=== PATIENT | male | born 1960 | race Caucasian/White ===

== ENCOUNTER 2023-11-16 15:11 | Inpatient (IN) | payer OTHER ==
[~2023-11-16] VITALS: Ht 175.3 cm; Wt 89.8 kg
[2023-11-16 15:14] VITALS: O2SAT 93
[2023-11-16 15:59] LABS: BASOPHILS % 0.5 % (0.0-2.0); HEMATOCRIT. 42.1 % (42.0-52.0); HEMOGLOBIN. 14.6 g/dL (14.0-18.0); LYMPHOCYTES % 26.6 % (20.0-50.0); MEAN CORPUSCULAR HGB CONC 34.6 g/dL (31.0-37.0); MEAN CORPUSCULAR VOLUME 89.8 fL (80.0-94.0); MEAN PLATELET VOLUME 8.7 fl (7.4-10.4); MONOCYTES % 8.2 % (2.0-8.0); NEUTROPHILS % 63.7 % (40.0-76.0); PLATELET 242 x1000/uL (130-400); RED BLOOD CELL COUNT 4.69 mill/uL (4.7-6.1); RED CELL DISTRIBUTION WIDTH 14.3 % (11.6-14.6); WHITE BLOOD COUNT 8.2 x1000/uL (4.5-11.0)
[2023-11-16 16:01] LABS: CHLORIDE 109 mEq/L (98-107); POTASSIUM 3.4 mEq/L (3.5-5.1); SODIUM 140 mEq/L (136-145)
[2023-11-16 16:02] LABS: CALCIUM 8.3 mg/dL (8.7-10.4); CARBON DIOXIDE 23 mEq/L (21-32)
[2023-11-16 16:06] LABS: CREATININE 1.2 mg/dL (0.6-1.3); PARTIAL THROMBOPLASTIN TIME 25.6 sec (23.4-31.0); PROTHROMBIN TIME 10.8 sec (9.6-11.0)
[2023-11-16 16:07] LABS: GLUCOSE 125 mg/dL (70-105); UREA NITROGEN BLOOD 17 mg/dL (9-23)
[2023-11-16 16:09] LABS: TROPONIN I HIGH SENSITIVITY 12 ng/L (3.0-53)
[2023-11-16] MEDS: DILTIAZEM HCL 5MG/ML 5ML VIAL IV ONE (16:17)
[2023-11-16] MEDS: SODIUM CHLORIDE 0.9% 1,000 ML IV ONE (16:19)
[2023-11-16 19:30] LABS: TROPONIN I HIGH SENSITIVITY 41 ng/L (3.0-53)
[2023-11-16] MEDS: DILTIAZEM HCL 120MG CAPSULE ER 24HR PO NR (19:42)
[2023-11-16] MEDS ORDERED: ACETAMINOPHEN 325MG TABLET PO PRN ×2 (23:00)
[2023-11-16] MEDS ORDERED: ONDANSETRON HCL 4MG/2ML INJ IV PRN (23:00)
[2023-11-16] MEDS ORDERED: CLONIDINE 0.1MG TABLET PO PRN (23:00)
[2023-11-16] MEDS ORDERED: GUAIFENESIN 200MG/10ML SUGAR FREE UDC PO PRN (23:00)
[2023-11-16] MEDS ORDERED: MAGNESIUM/ALUMINUM HYDROXIDE/SIMETHICONE 30ML UDC PO PRN (23:00)
[2023-11-16] MEDS ORDERED: DOCUSATE SODIUM 100MG CAPSULE PO PRN (23:00)
[2023-11-17] VITALS: BP 142/66; PULSE 62; RESP 18; TEMP 98.2
[2023-11-17] MEDS ORDERED: HYDR50TA PO (00:40)
[2023-11-17] MEDS ORDERED: VALS160T28 PO (00:40)
[2023-11-17] MEDS ORDERED: METF-907 PO (00:40)
[2023-11-17] MEDS ORDERED: ATOR-2 PO (00:40)
[2023-11-17] MEDS ORDERED: DILT240C96 PO (00:40)
[2023-11-17] MEDS ORDERED: CLOP75TA33 PO (00:40)
[2023-11-17 04:00] VITALS: BP 133/66; PULSE 49; RESP 18; TEMP 98.2
[2023-11-17] MEDS ORDERED: ATROPINE SULFATE 1MG/10ML SYR IV PRN (04:00)
[2023-11-17] MEDS ORDERED: HYDRALAZINE 20MG/ML VIAL IV PRN (04:00)
[2023-11-17] MEDS ORDERED: SODIUM CHLORIDE 0.9% 500 ML IV ONE (05:30)
[2023-11-17 07:29] LABS: BASOPHILS % 0.5 % (0.0-2.0); EOSINOPHILS % 1.2 % (0.0-5.0); HEMOGLOBIN. 15.2 g/dL (14.0-18.0); LYMPHOCYTES % 30.6 % (20.0-50.0); MEAN CORPUSCULAR HEMOGLOBIN 30.4 pg (28.0-32.0); MEAN CORPUSCULAR HGB CONC 33.9 g/dL (31.0-37.0); MEAN CORPUSCULAR VOLUME 89.7 fL (80.0-94.0); MEAN PLATELET VOLUME 8.8 fl (7.4-10.4); MONOCYTES % 7.7 % (2.0-8.0); PLATELET 236 x1000/uL (130-400); RED BLOOD CELL COUNT 5.01 mill/uL (4.7-6.1); RED CELL DISTRIBUTION WIDTH 14.5 % (11.6-14.6); WHITE BLOOD COUNT 8.5 x1000/uL (4.5-11.0)
[2023-11-17 07:58] LABS: CARBON DIOXIDE 24 mEq/L (21-32); CHLORIDE 108 mEq/L (98-107); POTASSIUM 3.5 mEq/L (3.5-5.1); SODIUM 140 mEq/L (136-145)
[2023-11-17 07:59] LABS: CALCIUM 8.5 mg/dL (8.7-10.4)
[2023-11-17 08:04] LABS: CREATININE 0.9 mg/dL (0.6-1.3); GLUCOSE 119 mg/dL (70-105); T4 FREE 1.54 ng/dL (0.89-1.76); TRIGLYCERIDE 170 mg/dL (0-150); UREA NITROGEN BLOOD 12 mg/dL (9-23)
[2023-11-17 08:05] LABS: LDL CHOLESTEROL 168 mg/dL (5-100)
[2023-11-17 08:06] LABS: CHOLESTEROL 221 mg/dL (<200); HDL CHOLESTEROL 36 mg/dL (>55); THYROID STIMULATING HORMONE 1.16 uIU/mL (0.55-4.78)
[2023-11-17] MEDS: MULTIVITAMINS,THER W-MINERALS TABLET PO SCH (08:33)
[2023-11-17] MEDS: CLOPIDOGREL 75MG TABLET PO SCH (08:34)
[2023-11-17] MEDS: ENOXAPARIN 40MG/0.4ML SYR SUBCUT SCH (08:34)
[2023-11-17] MEDS: PANTOPRAZOLE 40MG DR TABLET PO SCH (08:34)
[2023-11-17 08:57] LABS: CREATINE KINASE MB FRACTION 2.1 ng/mL (0.5-3.6); TROPONIN I HIGH SENSITIVITY 26 ng/L (3.0-53)
[2023-11-17 08:58] LABS: CREATINE KINASE 131 IU/L (46-171)
[2023-11-17] MEDS ORDERED: DILTIAZEM HCL PO SCH (09:00)
[2023-11-17] MEDS ORDERED: HYDROCHLOROTHIAZIDE 25MG TABLET PO SCH (09:00)
[2023-11-17] MEDS ORDERED: MEDICATION NOT ON FORMULARY EA (Hydrochlorothiazide 1 TAB) PO SCH (09:00)
[2023-11-17] MEDS ORDERED: DILTIAZEM HCL 120MG CAPSULE ER 24HR PO SCH (09:00)
[2023-11-17] MEDS ORDERED: MEDICATION NOT ON FORMULARY EA (Atorvastatin Calcium 1 TAB) PO SCH (09:00)
[2023-11-17] MEDS ORDERED: MEDICATION NOT ON FORMULARY EA (Valsartan 1 TAB) PO SCH (09:00)
[2023-11-17] MEDS: POTASSIUM CHLORIDE 20MEQ TABLET SR PO NR (12:42)
[2023-11-17 14:17] LABS: CREATINE KINASE MB FRACTION 2.1 ng/mL (0.5-3.6)
[2023-11-17 18:58] LABS: CREATINE KINASE 120 IU/L (46-171); CREATINE KINASE MB FRACTION 1.7 ng/mL (0.5-3.6)
[2023-11-17 18:59] LABS: TROPONIN I HIGH SENSITIVITY 19 ng/L (3.0-53)
[2023-11-17] MEDS ORDERED: ATORVASTATIN CALCIUM 40MG TABLET PO SCH (21:00)
[2023-11-17] MEDS ORDERED: LOSARTAN 100 MG TABLET PO SCH (21:00)
== END 2023-11-17 19:05 | disposition short-term general hospital (02) | DRG 310 ==
LOC: ER 15:11 → 5WST 19:11 → EDBEDREQ 19:37 → EDBEDREQTM 19:37 → 7WST 23:55
PROVIDERS: ADMIT Internal Medicine; ATTEND Internal Medicine
DX: I47.19 Other supraventricular tachycardia (principal); E87.6 Hypokalemia; E78.5 Hyperlipidemia, unspecified; E66.9 Obesity, unspecified; I10 Essential (primary) hypertension; Z68.29 Body mass index [BMI] 29.0-29.9, adult; E11.9 Type 2 diabetes mellitus without complications; Z79.899 Other long term (current) drug therapy; Z79.84 Long term (current) use of oral hypoglycemic drugs; Z79.02 Long term (current) use of antithrombotics/antiplatelets
CPT/HCPCS: 36415; 71045; 80048; 80061; 82550; 82553; 83880; 84439; 84443; 84484; 85025; 93005; 93970; 99291; J1650; J3490; J7030